=== PATIENT | male | born 1935 | race American Indian/Alaskan Native ===

== ENCOUNTER 2017-08-15 00:30 | Emergency (ER) | payer MEDICARE ==
[2017-08-15] MEDS ORDERED: NACL 0.9% 500 ML 500 ML IV ONE (01:18)
--- NOTE | 2017-08-15 01:38 | XRay Report ---
FINAL REPORT EXAM: XR CHEST 1V AP HISTORY: Syncope TECHNIQUE: A portable upright view the chest was obtained. FINDINGS: The heart size is normal. The thoracic aorta is moderately tortuous. The lungs are clear. Pleural fluid is not seen. 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 IMPRESSION: No active chest disease.
[2017-08-15 02:05] LABS: Basophils # (Auto) 0.1 K/mm3 (0.0-0.1); Basophils % (Auto) 0.6 % (0.0-1.8); Eosinophils % (Auto) 0.5 % (0.0-4.3); Hematocrit 23.1 % (35.5-45.6); Hemoglobin 8.3 gm/dl (11.8-15.2); Lymphocytes # (Auto) 1.2 K/mm3 (1.2-5.4); Lymphocytes % (Auto) 12.2 % (13.4-35.0); Mean Corpuscular HGB Conc 36 % (32-34); Mean Corpuscular Hemoglobin 31 pg (28-32); Mean Corpuscular Volume 86 fl (84-94); Monocytes # (Auto) 0.8 K/mm3 (0.0-0.8); Monocytes % (Auto) 7.9 % (0.0-7.3); Platelet Count 266 K/mm3 (140-440); Red Blood Count 2.67 M/mm3 (3.65-5.03); Red Cell Distribution Width 14.9 % (13.2-15.2)
[2017-08-15 02:27] LABS: Albumin 4.1 g/dL (3.9-5); Calcium 9.3 mg/dL (8.4-10.2)
[2017-08-15 03:01] LABS: Chol/HDL Ratio 3.96 %
--- NOTE | 2017-08-15 03:02 | Cat Scan Report ---
FINAL REPORT EXAM: CT HEAD/BRAIN WO CON HISTORY: Syncope TECHNIQUE: Routine axial imaging was obtained of the brain without IV contrast. There are no previous studies available for comparison. FINDINGS: There is age related atrophy. There is diminished attenuation of the periventricular white matter compatible chronic microvascular disease changes. There is no evidence of acute stroke or hemorrhage. The ventricular system is appropriate in size and is symmetric. The visualized sinuses are clear. The mastoid air cells are well pneumatized. The calvarium appears intact. IMPRESSION: Age related atrophy with chronic ischemic white matter disease changes. No evidence of acute stroke or hemorrhage.
--- NOTE | 2017-08-15 04:07 | Emergency Department Report ---
ED Syncope HPI - General Chief Complaint: Weakness Stated Complaint: CHEST PAIN Time Seen by Provider: 08/15/17 01:03 - History of Present Illness Initial Comments: Patient is a 82-year-old male who is presenting with a syncopal episode. Patient states he was sitting at home and felt fine and his family noted that he simply passed out. Patient had 2 additional syncopal episodes after awakening. Patient vomited once during this episode. Patient is denying any chest pain shortness of breath fevers chills nausea vomiting cough neck stiffness or headache at this time. Patient states he feels fine. Patient does have a history of stage IV or 5 kidney disease but does not see one of our nephrologists here in the hospital. - Related Data Allergies/Adverse Reactions: Allergies No Known Allergies Allergy (Unverified 08/15/17 00:58) ED Review of Systems ROS: Stated complaint: CHEST PAIN Other details as noted in HPI Comment: All other systems reviewed and negative ED Past Medical Hx - Past Medical History Previous Medical History?: Yes Hx Hypertension: Yes Hx Liver Disease: Yes Hx Renal Disease: Yes - Surgical History Past Surgical History?: No - Social History Smoking Status: Unknown if ever smoked Substance Use Type: None ED Physical Exam - General Limitations: No Limitations General appearance: alert, in no apparent distress - Head Head exam: Present: atraumatic, normocephalic - Eye Eye exam: Present: normal appearance - ENT ENT exam: Present: mucous membranes moist - Neck Neck exam: Present: normal inspection - Respiratory Respiratory exam: Present: normal lung sounds bilaterally. Absent: respiratory distress, wheezes, rales, rhonchi - Cardiovascular Cardiovascular Exam: Present: regular rate, normal rhythm. Absent: systolic murmur, diastolic murmur, rubs, gallop - GI/Abdominal GI/Abdominal exam: Present: soft, normal bowel sounds. Absent: distended, tenderness, guarding, rebound - Rectal Rectal exam: Present: deferred - Extremities Exam Extremities exam: Present: normal inspection - Back Exam Back exam: Present: normal inspection - Neurological Exam Neurological exam: Present: alert, oriented X3 - Psychiatric Psychiatric exam: Present: normal affect, normal mood - Skin Skin exam: Present: warm, dry, intact, normal color. Absent: rash ED Course Vital Signs 08/15/17 08/15/17 08/15/17 00:52 00:59 01:00 Temperature 98.2 F Pulse Rate 86 82 83 Respiratory 18 22 Rate Blood Pressure 150/83 137/77 O2 Sat by Pulse 100 95 Oximetry 08/15/17 08/15/17 08/15/17 01:09 01:16 01:30 Temperature Pulse Rate 90 89 Respiratory 20 20 21 Rate Blood Pressure 134/79 129/82 O2 Sat by Pulse 99 99 Oximetry 08/15/17 08/15/17 08/15/17 01:46 01:47 02:00 Temperature 99.1 F Pulse Rate 87 91 H Respiratory 23 26 H Rate Blood Pressure 134/79 134/79 O2 Sat by Pulse 98 98 Oximetry ED Medical Decision Making - Lab Data Result diagrams: 08/15/17 01:45 08/15/17 01:45 - EKG Data -: EKG Interpreted by Me - EKG Data Interpretation: other (EKG shows sinus rhythm rate 80 to axis is leftward is a left bundle branch block prolonged QT for an overdose is no obvious ST elevation time of interpretation 00 35) - Radiology Data Radiology results: report reviewed Chest x-ray shows no acute process Head CT without contrast shows no acute process - Medical Decision Making No known cause of the syncope was found by did offer admission to the patient but he stated he wanted to go home. Patient will sign out AGAINST MEDICAL ADVICE at this time. Critical care attestation.: If time is entered above; I have spent that time in minutes in the direct care of this critically ill patient, excluding procedure time. ED Disposition Clinical Impression: Syncope Qualifiers: Syncope type: unspecified Qualified Code(s): R55 - Syncope and collapse Chronic renal disease Qualifiers: Chronic kidney disease stage: unspecified stage Qualified Code(s): N18.9 - Chronic kidney disease, unspecified Disposition: [id number] LEFT AGAINST MED ADVICE Is pt being admited?: No Does the pt Need Aspirin: No Condition: Stable Instructions: Syncope (ED) Referrals: [facility] [Other] - 3-5 Days
[2017-08-15 04:25] VITALS: BP 128/76
== END 2017-08-15 04:34 | disposition left against medical advice (07) ==
LOC: ED 00:30
DX: R55 Syncope and collapse (principal); I12.9 Hypertensive chronic kidney disease with stage 1 through stage 4 chronic kidney disease, or unspecified chronic kidney disease; N18.9 Chronic kidney disease, unspecified
CPT/HCPCS: 36415; 70450; 71045; 80053; 80061; 84484; 85025; 93005; 93010; 99285; J7040